=== PATIENT | female | born 1995 | race Caucasian/White ===

== ENCOUNTER 2018-01-01 13:35 | Emergency (ER) | payer OTHER ==
[~2018-01-01] VITALS: Ht 157.5 cm; Wt 90.7 kg
[2018-01-01 13:38] VITALS: BP 130/70; Ht 157.5 cm; Wt 90.7 kg
== END 2018-01-01 13:49 | disposition left against medical advice (07) ==
LOC: ED 13:35
DX: Z53.21 Procedure and treatment not carried out due to patient leaving prior to being seen by health care provider (principal)

== ENCOUNTER 2018-01-12 14:47 | Emergency (ER) | payer OTHER ==
[~2018-01-12] VITALS: Ht 157.5 cm; Wt 97.5 kg
[2018-01-12 14:52] VITALS: BP 110/61; Ht 157.5 cm; Wt 97.5 kg
== END 2018-01-12 16:27 | disposition home or self-care (01) ==
LOC: ED 14:47
DX: L50.9 Urticaria, unspecified (principal)
CPT/HCPCS: J1200; J2930

== ENCOUNTER 2018-01-13 07:30 | Emergency (ER) | payer OTHER ==
[~2018-01-13] VITALS: Ht 157.5 cm; Wt 96.6 kg
[2018-01-13 07:39] VITALS: Ht 157.5 cm; Wt 96.6 kg
[2018-01-13 08:55] VITALS: BP 134/74
== END 2018-01-13 08:55 | disposition home or self-care (01) ==
LOC: ED 07:30
DX: L50.0 Allergic urticaria (principal)
CPT/HCPCS: J0171; J1200; J2930

== ENCOUNTER 2018-04-15 14:38 | Emergency (ER) | payer OTHER ==
[~2018-04-15] VITALS: Ht 157.5 cm; Wt 98.0 kg
[2018-04-15 14:40] VITALS: Ht 157.5 cm; Wt 98.0 kg
[2018-04-15 16:56] LABS: BASOPHIL % 0.9 % (0-2); PLATELET COUNT 387 x10^3mcL (130-400); RED CELL DISTRIBUTION WIDTH 14.2 % (11.5-14.5)
[2018-04-15 16:59] LABS: CALCIUM 8.9 mg/dL (8.5-10.1); CARBON DIOXIDE 26.7 mmol/L (21-32); CHLORIDE SERUM 101 mmol/L (98-107); CREATININE SERUM 0.7 mg/dL (0.6-1.0); GFR1 > 60 mL/min; GLUCOSE SERUM 94 mg/dL (74-106); POTASSIUM SERUM 3.6 mmol/L (3.5-5.1); SODIUM SERUM 135 mmol/L (136-145)
[2018-04-15 17:02] LABS: ALBUMIN 3.7 g/dL (3.4-5.0); ALKALINE PHOSPHATASE 67 U/L (46-116); ALT/SGPT 21 U/L (14-59); AMYLASE 62 U/L (25-115); AST/SGOT 15 U/L (15-37); BILIRUBIN TOTAL 0.5 mg/dL (0.20-1.00); LIPASE 115 IU/L (73-393); TOTAL PROTEIN, SERUM 8.1 g/dL (6.4-8.2)
[2018-04-15 17:21] LABS: AMPHETAMINE QUAL UR NONE DETECTED (See below)
[2018-04-15 19:04] VITALS: BP 140/47
== END 2018-04-15 19:04 | disposition home or self-care (01) ==
LOC: ED 14:38
PROVIDERS: Emergency Medicine
DX: R07.89 Other chest pain (principal)
CPT/HCPCS: 36415; 85378; G0480